=== PATIENT | female | born 2000 | race Caucasian/White ===

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

== ENCOUNTER 2020-09-21 11:12 | Emergency (ER) | payer OTHER, BC ==
[~2020-09-21] VITALS: Ht 157.2 cm; Wt 54.5 kg
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
--- NOTE | 2020-09-21 12:15 | NUR ---
Roxana mora in [facility] - 09/21/20 at [address] ELA VARGAS
[2020-09-21 12:35] VITALS: BP 117/60
== END 2020-09-21 12:37 | disposition home or self-care (01) ==
LOC: EDUNIT# 11:12 → ER 11:14
DX: S46.811A Strain of other muscles, fascia and tendons at shoulder and upper arm level, right arm, initial encounter (principal); F41.9 Anxiety disorder, unspecified; K08.89 Other specified disorders of teeth and supporting structures; R40.2410 Glasgow coma scale score 13-15, unspecified time; V49.9XXA Car occupant (driver) (passenger) injured in unspecified traffic accident, initial encounter
CPT/HCPCS: 99283

== ENCOUNTER → 2022-07-05 | Outpatient (CLI) | payer BC ==
--- NOTE | 2022-07-05 11:08 | Diagnostic Imaging Report ---
Indication: Injury to the right foot. Time of Exam: 11:02 AM 3 views right foot were obtained. There is a fracture at the base of the 5th metatarsal. No displacement is seen. Remaining metatarsals are intact. Phalanges are intact. Midfoot and hindfoot are unremarkable. IMPRESSION: Nondisplaced fracture at the base of the 5th metatarsal. Dictated by: Dictated on workstation # [id number]
== END ==
LOC: RAD 10:30
PROVIDERS: ATTEND Nurse Practitioner Family
DX: S92.354A Nondisplaced fracture of fifth metatarsal bone, right foot, initial encounter for closed fracture (principal); X58.XXXA Exposure to other specified factors, initial encounter
CPT/HCPCS: 73630

== ENCOUNTER 2023-04-27 07:51 | Emergency (ER) | payer BC ==
[~2023-04-27] VITALS: Ht 157 cm; Wt 54.0 kg
[2023-04-27] MEDS ORDERED: PROMETHAZINE INJ 25 MG/ML (PHENERGAN) AMP IVP ONE (08:15)
[2023-04-27] MEDS ORDERED: LACTATED RINGERS 1,000 ML IV ONE (08:15)
[2023-04-27 08:23] LABS: BASOPHILS % (AUTO) 0 % (0-10); EOSINOPHILS % (AUTO) 0 % (0-10); HEMATOCRIT 37 % (35-52); HEMOGLOBIN 12.5 g/dL (11.5-16.0); LYMPHOCYTES # (AUTO) 2.4 10^3/uL (1.0-4.0); LYMPHOCYTES % (AUTO) 27 % (12-44); MEAN CORPUSCULAR HEMOGLOBIN 30 pg (25-34); MEAN CORPUSCULAR HGB CONC 34 g/dL (32-36); MEAN CORPUSCULAR VOLUME 87 fL (80-99); MEAN PLATELET VOLUME 10.4 fL (9.0-12.2); MONOCYTES # (AUTO) 0.6 10^3/uL (0.0-1.0); MONOCYTES % (AUTO) 6 % (0-12); NEUTROPHILS # (AUTO) 5.9 10^3/uL (1.8-7.8); NEUTROPHILS % (AUTO) 66 % (42-75); PLATELET COUNT 257 10^3/uL (130-400); WHITE BLOOD COUNT 8.9 10^3/uL (4.3-11.0)
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
[2023-04-27 08:49] LABS: CREATININE SERUM 0.72 MG/DL (0.60-1.30); MAGNESIUM 1.8 MG/DL (1.6-2.4); POTASSIUM 3.2 MMOL/L (3.6-5.0)
[2023-04-27] MEDS ORDERED: KCL 10 MEQ TAB (MICRO K) PO ONE (09:00)
[2023-04-27] MEDS ORDERED: FAMOTIDINE 20 MG (PEPCID) TABLET PO ONE (09:00)
[2023-04-27] MEDS ORDERED: PROM25TA14 PO (09:20)
[2023-04-27] MEDS ORDERED: FAMO-119 PO (09:20)
[2023-04-27 09:41] VITALS: BP 129/84
== END 2023-04-27 09:41 | disposition home or self-care (01) ==
LOC: EDUNIT# 07:51 → ER 07:54
DX: O21.0 Mild hyperemesis gravidarum (principal); O99.281 Endocrine, nutritional and metabolic diseases complicating pregnancy, first trimester; E87.6 Hypokalemia; F31.9 Bipolar disorder, unspecified; Z79.899 Other long term (current) drug therapy; Z3A.10 10 weeks gestation of pregnancy
CPT/HCPCS: 36415; 80048; 83735; 85025; 93041

== ENCOUNTER → 2023-07-02 | Outpatient (CLI) | payer BC ==
[~2023-07-02] MED LIST: FAMO-119 PO; PROM25TA14 PO
--- NOTE | 2023-07-02 14:11 | Diagnostic Imaging Report ---
INDICATION: Supervision of normal . Anatomy scan. TECHNIQUE: Multiple real-time grayscale images were obtained over the gravid uterus. COMPARISON: None FINDINGS: A single live intrauterine gestation is present in breech presentation. heart tones measure 147 bpm. The placenta is anterior and not low lying. The ARMIDA measures 15 cm. The cervix is closed and measures 4.7 cm in length. The ventricles, brain, kidneys, bladder, stomach, four-chamber heart, outflow tracts, three-vessel cord, cord insertion, and spine are visualized and have a normal appearance. Views of the adnexa have a normal appearance. Biometrical measurements are as follows: Biparietal 4.74 cm, age 20 weeks 3 days. Head circumference 18.65 cm, age 21 weeks 0 days. Abdominal circumference 17.00 cm, age 22 weeks 0 days. Femur length 3.17 cm, age 19 weeks 6 days. Sonographic estimate age: 20 weeks 6 days. Sonographic estimated date of delivery: 11/13/2023. Estimated Weight: 391 gm (+/- 57 gm). LMP percentile: 83%. heart rate: 146 beats per minute. number: 1 of 1. IMPRESSION: 1. Single live intrauterine gestation measuring 20 weeks 6 days and estimated due date of 11/13/2023. These are within range with the clinical dates. 2. Unremarkable anatomic survey. No abnormalities are identified. 3. Breech presentation. Recommend attention on follow-up. Dictated by: Dictated on workstation # [id number]
== END ==
LOC: RAD 09:53
PROVIDERS: ATTEND Obstetrics & Gynecology
DX: Z36.89 Encounter for other specified antenatal screening (principal); O32.1XX0 Maternal care for breech presentation, not applicable or unspecified; Z3A.20 20 weeks gestation of pregnancy
CPT/HCPCS: 76805

== ENCOUNTER 2023-07-19 07:39 | Outpatient (CLI) | payer BC ==
[~2023-07-19] VITALS: Ht 157.5 cm; Wt 60.2 kg
[2023-07-19 08:15] VITALS: BP 109/61
--- NOTE | 2023-07-19 08:32 | OB Triage Report ---
Standard Progress Note Progress Notes/Assess & Plan Date Seen by a Provider: Jul 19, 2023 Time Seen by a Provider: 08:30 Expected Date of Delivery: Nov 17, 2023 Gestational Age in Weeks: 22 Gestational Age in Days: 5 LMP/LUÍS Comment: This 23yo G1 presents to L&D @22w5d with c/o cramping she denies LOF or VB. FHT 140s reassuring TOCOs none CVX closed Pain is suprapubic area no RRG Labs reviewed UA 2+ RBCs Progress/Assessment & Plan IUP@22w5d hematuria (most likely renal stones) DC to home Keep next appt Increase water intake Tylenol for cramping. LEYDI WYNN DO Jul 19, 2023 08:32
[2023-07-19 08:36] LABS: AMORPHOUS SEDIMENT,UR LARGE AMOR PHOSPHATE /LPF; BACTERIA,URINE NEGATIVE /HPF; BILIRUBIN,URINE NEGATIVE (NEGATIVE); CLARITY,URINE CLEAR; COLOR,URINE YELLOW; GLUCOSE, URINE (UA) NEGATIVE (NEGATIVE); KETONES,URINE NEGATIVE (NEGATIVE); LEUKOCYTE ESTERASE ,URINE NEGATIVE (NEGATIVE); NITRITE,URINE NEGATIVE (NEGATIVE); PROTEIN,URINE NEGATIVE (NEGATIVE); RBC,URINE >100 /HPF; WBC,URINE 0-2 /HPF
[2023-07-19] MEDS ORDERED: PNV-9 PO (08:51)
[2023-07-19] MEDS ORDERED: CARI1.5C PO (08:51)
== END 2023-07-19 09:05 ==
LOC: LDRP 07:39 → WSo 07:39
PROVIDERS: ATTEND Obstetrics & Gynecology
DX: O26.892 Other specified pregnancy related conditions, second trimester (principal); Z3A.22 22 weeks gestation of pregnancy
CPT/HCPCS: 81000; G0463; 99213

== ENCOUNTER 2023-10-09 09:24 | Outpatient (CLI) | payer BC ==
[~2023-10-09] VITALS: Ht 157.5 cm; Wt 69.3 kg
[~2023-10-09 09:24] MED LIST changes: +CARI1.5C PO; +PNV-9 PO
[2023-10-09 09:30] VITALS: BP 122/86
--- NOTE | 2023-10-09 11:36 | Diagnostic Imaging Report ---
US BIOPHYSICAL PROFILE [id number] INDICATION: Decreased movements COMPARISON: None available. TECHNIQUE: Limited transabdominal sonographic imaging was performed for purposes of biophysical profile. FINDINGS: Single live intrauterine patency is in cephalic presentation. heart rate is 138 bpm. The ARMIDA is normal at 11.99 cm. Normal breathing movements, movements and posturing was seen throughout the examination. IMPRESSION: Normal biophysical profile with a score of 8/8. Dictated by: Dictated on workstation # [id number]
== END 2023-10-09 12:00 | disposition home or self-care (01) ==
LOC: LDRP 09:24 → WSo 09:24
PROVIDERS: ATTEND Obstetrics & Gynecology
DX: O36.8130 Decreased fetal movements, third trimester, not applicable or unspecified (principal); Z3A.34 34 weeks gestation of pregnancy
CPT/HCPCS: 76819; G0463; 99213